=== PATIENT | male | born 1960 ===

== ENCOUNTER → 2021-06-11 | Outpatient (CLI) | payer OTHER ==
[~2021-06-11] MED LIST: ATOR10TA60 PO; MULT-245 PO; [UNRECOGNIZED DRUG - OTHER]; [UNRECOGNIZED DRUG - OTHER]
--- NOTE | 2021-06-11 12:39 | PDOC1 ---
INITIAL PAIN CONSULT DATE OF SERVICE: DOS: DATE: 06/11/21 TIME: 12:32 CHIEF COMPLAINT: Chief Complaint: Right low back and flank pain HISTORY OF PRESENT ILLNESS: 60-year-old male presents history of pain in the right side mid to low back for about 9 months not the result of any specific injury or accident that he is aware of, but getting worse with time and has a "spastic "quality to it patient reports spasms are worse with sitting for prolonged periods more than about 30 minutes and when laying down has been disturbing him from sleep over the past few months patient reports it wakes him up to 4 times a night does not affect his bowel bladder control was ability to walk as he feels better when he is walking or standing to some extent but is much worse with sitting for prolonged periods and when he is going to lay down or change positions patient reports he has had trigger point injections which were helpful temporarily as well as physical therapy which is been ongoing since January also had chiropractic treatment several times and is doing exercise daily also applying heat and cold packs to the back and doing pressure massage and a TENS unit none of which are g iving very much but temporary relief patient is taking Advil also cyclobenzaprine naproxen helps the best of the medications he tried he is taking that as recently as yesterday. Patient rates disability rating 0-10 10 being worst is 8 with him home responsibilities 9 with recreation social activity 7 with occupation 5 with section behavior 1 with self-care and 0 with life support activities. 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 PHYSICAL EXAM: VS: Blood pressure is 145/97 pulse 72 respirations 18 temperature 97.8 F height is 74 inches weight is 241 pounds PE: PHYSICAL EXAMINATION: GENERAL: The patient is awake, alert, oriented, appropriate, very pleasant in demeanor HEENT: Shows normocephalic, atraumatic. Extraocular movements are intact and symmetrical. Oral cavity: Mucous membranes moist and pink. Dentition is intact. NECK: Shows anterior throat supple without palpable lymphadenopathy noted. Swallow reflex symmetrical. CHEST: Shows normal on inspection. Breath sounds are clear bilaterally, distant no rales or rhonchi. HEART: Shows S1, S2 clear. No murmurs auscultated. ABDOMEN: Soft, nontender, nondistended or wheezes, obese. No palpable organomegaly is noted. BACK: Shows spine grossly in the midline. Normal-appearing cervical lordotic curvature. There is slightly increased thoracic kyphosis, some minor flattening of the lumbar lordotic curvature. Lumbar paraspinous muscles show symmetrical on inspection, on palpation shows some moderate tenderness diffusely throughout the upper, middle and lower distribution of the paraspinous muscles bilaterally and also into the lower thoracic paraspinous musculature, firm and tender, but without specific trigger points, without radiation of pain, is grossly symmetrical in the low thoracic paraspinous musculature on the right than the l eft with tenderness with palpation only deep palpation, on the right side in the lower thoracic paraspinous musculature but without radiation bilaterally. The patient has good rotational motion of the lumbar spine, both laterally as well as extension and flexion without significant difficulty. No tenderness over the spinous processes, sacrum or sacroiliac regions. EXTREMITIES: Lower extremities show deep tendon reflexes 2+ in the patellar and tendo calcaneus tendons. Motor exam is 5 on a scale of 5 with right dorsiflexion, extension, quadriceps and hamstring flexion and 5/5 on the left. Peripheral pulses are 1+ posterior tibial. No peripheral edema is noted bilaterally. Lower extremities are warm and dry to touch, equal in color and appearance. SKIN: Shows warm and dry, good turgor. No edema. No sores, rashes or bruising throughout. IMPRESSION: Impression: 60-year-old male with approximate 9-month history pain right mid low back and flank. Plain films thoracic and lumbar spine as noted History of hyperlipidemia Plan: Options discussed with patient including conservative managements physical therapies interventional techniques. We will obtain MRI scan of the thoracic and lumbar spine to better differentiate any radicular component as he does have radiating pain on the right side in the low thoracic distribution upper lumbar distribution. Once MRI scan is obtained we will review this and discuss options with the patient at that time. In the meantime, patient will continue with stretching exercises physical therapy exercises TENS unit application as well as oral analgesics as currently. NATHALIA HOOD MD Jun 11, 2021 12:39
== END | disposition home or self-care (01) ==
LOC: PNCL 11:19
PROVIDERS: ATTEND Anesthesiology
DX: M54.50 Low back pain, unspecified (principal); R10.9 Unspecified abdominal pain; E78.5 Hyperlipidemia, unspecified; E03.9 Hypothyroidism, unspecified; Z79.899 Other long term (current) drug therapy; Z98.890 Other specified postprocedural states
CPT/HCPCS: G0463

== ENCOUNTER → 2021-07-21 | Outpatient (CLI) | payer OTHER ==
[~2021-07-21] MED LIST changes: +methylPREDNISolone ACETATE 80 MG/ML VIAL. ONE
--- NOTE | 2021-07-21 09:12 | PDOC4 ---
Procedure Note: ICD 10 Code: ICD 10 Code: M54.14 M51.34 Procedure Note: Patient was consented for thoracic epidural steroid injection with fluoroscopic guidance. Risks were discussed including but not limited to: Bleeding, infection, possibility of epidural hematoma and subsequent neurological compromise, dural puncture, headaches, spinal cord and/or nerve damage, side effects of steroid medication, and poor results regarding pain control. Patient understands and wished to proceed. Procedure is thoracic epidural steroid injection under local anesthetic using sterile prep and drape at the T8-9 level using C-arm fluoroscopic guidance in both AP and lateral views medications injected is 120 mg Depo-Medrol +10mL preservative-free normal saline and 2 mL contrast- condition at discharge is stable patient tolerated procedure well had no complications. NATHALIA HOOD MD Jul 21, 2021 09:12
--- NOTE | 2021-07-21 09:12 | PDOC ---
Progress Note - Pain Clinic Date of Service: DOS: DATE: 07/21/21 TIME: 09:07 Diagnosis: Dx: Thoracic radiculopathy with thoracic degenerative disc disease History or Present Illness: HPI: 60-year-old male returns for follow-up after initial evaluation 06/11/2021, patient with significant pain in the mid right side of his back rating to the right lateral flank worse with activity stretching will change positions and sitting for prolonged periods with radiation to the right side and now experiencing some muscle spasms which are becoming much more prominent in the right side of the mid back. And radiating to the right flank as well. Patient reports it is better if he keeps moving worse if he stands still or standing 1 position for too long more than about 15 minutes the spasms are becoming much more noticeable and radiating pain more noticeable as well. Patient rates his pain a 9 on scale 10 is worse over the past week 8 on average 0 its least and is a 5 today. Patient reports no bowel or bladder incontinence reports the pain is sharp and spastic sensation on the right side in the mid back rating to the right posterior rib cage and right lateral flank as well only on the right. Patient reports wakes up for sleep only about once or twice a night maybe once every 6 or 7 hours reposition and get back to sleep or take pain medication. Patient reports no loss of motor function no bowel or bladder incontinence. Physical Exam: VS: Blood pressure is 143/73 pulse 86 respirations 18 temperature 90.1 F height 74 inches weight is 238 pounds. PE: PHYSICAL EXAMINATION: GENERAL: The patient is awake, alert, oriented, appropriate, very pleasant in demeanor HEENT: Shows normocephalic, atraumatic. Extraocular movements are intact and symmetrical. Oral cavity: Mucous membranes moist and pink. Dentition is intact. NECK: Shows anterior throat supple without palpable lymphadenopathy noted. Swallow reflex symmetrical. CHEST: Shows normal on inspection. Breath sounds are clear bilaterally, no rales or rhonchi. HEART: Shows S1, S2 clear. No murmurs auscultated. ABDOMEN: Soft, nontender, nondistended. No palpable organomegaly is noted. BACK: Shows spine grossly in the midline. Normal-appearing cervical lordotic curvature. There is slightly increased thoracic kyphosis, with significant tenderness more on the right side than the left in the mid to lower distribution of the thoracic paraspinous musculature and slight hypertrophy on the right compared to the left but without radiation on palpation. Patient has some minor flattening of the lumbar lordotic curvature. Lumbar paraspinous muscles show symmetrical on inspection, on palpation shows some moderate tenderness diffusely throughout the upper, middle and lower distribution of the paraspinous muscles, but without specific trigger points, without radiation of pain. The patient has good rotational motion of the lumbar and thoracic spines, both laterally as well as extension and flexion without significant difficulty. No tenderness over the spinous processes, sacrum or sacroiliac regions. EXTREMITIES: Lower extremities show deep tendon reflexes 2+ in the patellar and tendo calcaneus tendons. Motor exam is 5 on a scale of 5 with right dorsiflexion, extension, quadriceps and hamstring flexion and 5/5 on the left. Peripheral pulses are 1+ posterior tibial. No peripheral edema is noted bilaterally. Lower extremities are warm and dry to touch, equal in color and appearance. SKIN: Shows warm and dry, good turgor. No edema. No sores, rashes or bruising throughout. Procedure: Procedure: Options discussed with the patient. Patient's old chart was viewed his current medication regimen updated current review of systems updated today as well. We will proceed with a thoracic epidural steroid injection today with fluoroscopic guidance. Risks were discussed including but not limited to: Bleeding, infection, possibility of epidural hematoma and subsequent neurological compromise, dural puncture, headaches, spinal cord and/or nerve damage, side effects of steroid medication, and poor results regarding pain control. Patient understands and wished to proceed. Patient will return to the clinic in approximately 2 weeks for follow-up, was counseled as to return appointment, activity level, and side effect to be aware of. Medication Injected: Med Injected: Procedure is thoracic epidural steroid injection under local anesthetic using sterile prep and drape at the T8-9 level using C-arm fluoroscopic guidance in both AP and lateral views medications injected is 120 mg Depo-Medrol +10mL preservative-free normal saline and 2 mL contrast- condition at discharge is stable patient tolerated procedure well had no complications. Condition at Discharge: Condition at Discharge: Patient's condition at discharge is stable patient tolerated the procedure well and had no complications. NATHALIA HOOD MD Jul 21, 2021 09:12
== END | disposition home or self-care (01) ==
LOC: PNCL 08:23
PROVIDERS: ATTEND Anesthesiology
DX: M51.14 Intervertebral disc disorders with radiculopathy, thoracic region (principal); Z79.899 Other long term (current) drug therapy
CPT/HCPCS: 62321; J1040